=== PATIENT | male | born 1965 | race African-American/Black ===

== ENCOUNTER 2021-09-24 23:23 | Inpatient (IN) ==
[2021-09-25] MEDS ORDERED: ALBUTEROL 2.5 MG/3 ML NEB RESP TX PRN (01:22)
[2021-09-25] MEDS ORDERED: MORPHINE 2 MG/1 ML SYRINGE IV PRN (01:22)
[2021-09-25] MEDS ORDERED: ONDANSETRON 4 MG/2 ML VIAL IV PRN (01:22)
[2021-09-25 01:43] LABS: Basophils % 0.4 % (0.0-0.8); Eosinophils # 0.1 10*3/uL (0.0-0.87); Eosinophils % 0.6 % (0.00-10.9); Hematocrit 30.6 VOL% (42.0-52.0); Hemoglobin 9.4 GM/DL (14.0-18.0); Immature Granulocytes % 0.3 %; Immature Granulocytes Absolute 0.03 #; Lymphocytes # 2.6 10*3/uL (1.4-4.0); Lymphocytes % 26.3 % (21.2-54.2); Mean Corpuscular HGB Conc 30.7 GM/DL (32-36); Mean Corpuscular Volume 74.6 FL (87-102); Mean Platelet Volume 11.5 FL (9.6-12.0); Monocytes % 8.3 % (1.7-12.7); Neutrophils % 64.1 % (38.7-73.9); Platelet Count 323 T/CUMM (130-400); Red Cell Distribution Width 16.7 % (9.3-17.3); White Blood Count 9.8 T/CUMM (4-12)
[2021-09-25] MEDS ORDERED: DEXTROSE 50% 25 GM/50 ML VIAL IV PRN (01:50)
[2021-09-25] MEDS ORDERED: GLUCAGON 1 MG VIAL IM PRN (01:50)
[2021-09-25 01:57] LABS: ABG Base Excess -2.1 MMOL/L (-2.5-2.5); ABG HCO3 22.7 MMOL/L (20-26); ABG Oxygen Saturation 99.1 % (95-100); ABG PCO2 41.6 MM HG (35-48); ABG PH 7.357 (7.35-7.45); ABG TCO2 21.5 MMOL/L (23-27)
[2021-09-25 02:01] LABS: INR 1.2; PT Patient Result 12.9 SECS (10.5-12.0)
[2021-09-25 02:57] LABS: Albumin 2.9 G/DL (3.4-5.0); Bilirubin,Total 0.8 MG/DL (0.20-1.00); Calcium 8.3 MG/DL (8.5-10.1); Osmolality,Calculated 284.8 MOS/KG (273-304); Total Protein 7.7 G/DL (6.4-8.2)
[2021-09-25] MEDS ORDERED: ACETAMINOPHEN 325 MG TABLET PO PRN (03:02)
[2021-09-25] MEDS ORDERED: MAGNESIUM SULF RIDER 4 GM/100 ML PREMIX IV PRN (03:03)
[2021-09-25] MEDS ORDERED: MAGNESIUM SULF RIDER 2 GM/50 ML PREMIX IV PRN (03:03)
[2021-09-25 04:50] LABS: ABG Base Excess -0.6 MMOL/L (-2.5-2.5); ABG HCO3 23.2 MMOL/L (20-26); ABG Oxygen Saturation 97.7 % (95-100); ABG PCO2 34.7 MM HG (35-48); ABG PH 7.443 (7.35-7.45); ABG PO2 105.5 MM HG (80-95); ABG TCO2 24.3 MMOL/L (23-27)
[2021-09-25] MEDS: INSULIN REGULAR 100 UNIT/ML SUBCUT SCH ×3 (06:02→17:19)
[2021-09-25] MEDS ORDERED: INSULIN REGULAR 100 UNIT/ML SUBCUT SCH (07:30)
[2021-09-25] MEDS ORDERED: traZODone 50 MG TABLET PO PRN (07:53)
[2021-09-25] MEDS: ALBUTEROL/IPRATROPIUM 3 ML NEB RESP TX SCH ×3 (08:17→18:11)
[2021-09-25] MEDS ORDERED: INFLUENZA VIRUS VACCINE 0.5 ML SYRINGE IM ONE (09:00)
[2021-09-25] MEDS: FAMOTIDINE 20 MG TABLET NG SCH ×2 (09:51→20:50)
[2021-09-25] MEDS: ASPIRIN EC 81 MG TABLET PO SCH (09:53)
[2021-09-25] MEDS: APIXABAN 5 MG TABLET PO SCH ×2 (09:53→20:49)
[2021-09-25] MEDS: MULTIVITAMIN (CENTRUM) TABLET PO SCH (09:53)
[2021-09-25] MEDS: FUROSEMIDE 40 MG/4 ML VIAL IV SCH ×2 (09:54→16:34)
[2021-09-25 11:36] LABS: Calcium 8.8 MG/DL (8.5-10.1); Osmolality,Calculated 285.4 MOS/KG (273-304); Potassium 3.5 MMOL/L (3.5-5.1)
[2021-09-25] MEDS: PIPERACILLIN/TAZOBACTAM 3,375 MG in SODIUM CHLORIDE 0.9% 100 ML IV SCH ×2 (14:43→20:49)
[2021-09-25] MEDS: GENVOYA PO SCH (18:47)
[2021-09-25] MEDS: ATORVASTATIN 20 MG TABLET PO SCH (20:50)
[2021-09-25] MEDS: INSULIN GLARGINE 100 UNIT/ML SUBCUT SCH (20:50)
[2021-09-25] MEDS ORDERED: ENOXAPARIN 40 MG/0.4 ML SYRINGE SUBCUT SCH (21:00)
[2021-09-26] MEDS: INSULIN REGULAR 100 UNIT/ML SUBCUT SCH ×4 (00:14→17:23)
[2021-09-26] MEDS: ALBUTEROL/IPRATROPIUM 3 ML NEB RESP TX SCH ×4 (01:20→20:14)
[2021-09-26 04:26] LABS: ABG Base Excess 2.5 MMOL/L (-2.5-2.5); ABG HCO3 26.7 MMOL/L (20-26); ABG Oxygen Saturation 99.1 % (95-100); ABG PCO2 40.9 MM HG (35-48); ABG PH 7.428 (7.35-7.45); ABG TCO2 24.5 MMOL/L (23-27)
[2021-09-26 04:49] LABS: Albumin 2.5 G/DL (3.4-5.0); Bilirubin,Total 1.6 MG/DL (0.20-1.00); Calcium 8.7 MG/DL (8.5-10.1); Osmolality,Calculated 283.1 MOS/KG (273-304); Potassium 3.3 MMOL/L (3.5-5.1); Total Protein 7.4 G/DL (6.4-8.2)
[2021-09-26] MEDS: PIPERACILLIN/TAZOBACTAM 3,375 MG in SODIUM CHLORIDE 0.9% 100 ML IV SCH ×3 (05:18→22:16)
[2021-09-26] MEDS: POTASSIUM CHLORIDE 20 MEQ TABLET PO PRN (05:27)
[2021-09-26 07:09] LABS: Basophils % 0.7 % (0.0-0.8); Eosinophils # 0.4 10*3/uL (0.0-0.87); Hematocrit 31.7 VOL% (42.0-52.0); Hemoglobin 9.8 GM/DL (14.0-18.0); Immature Granulocytes % 0.2 %; Immature Granulocytes Absolute 0.01 #; Lymphocytes # 1.8 10*3/uL (1.4-4.0); Mean Corpuscular HGB Conc 30.9 GM/DL (32-36); Mean Corpuscular Volume 73.7 FL (87-102); Mean Platelet Volume 11.8 FL (9.6-12.0); Monocytes % 10.9 % (1.7-12.7); Neutrophils % 51.2 % (38.7-73.9); Platelet Count 378 T/CUMM (130-400); Red Cell Distribution Width 16.9 % (9.3-17.3); White Blood Count 5.9 T/CUMM (4-12)
[2021-09-26] MEDS: FUROSEMIDE 40 MG/4 ML VIAL IV SCH ×2 (07:37→16:42)
[2021-09-26] MEDS: APIXABAN 5 MG TABLET PO SCH ×2 (08:46→22:15)
[2021-09-26] MEDS: MULTIVITAMIN (CENTRUM) TABLET PO SCH (08:46)
[2021-09-26] MEDS: FAMOTIDINE 20 MG TABLET NG SCH ×2 (08:46→22:17)
[2021-09-26] MEDS: ASPIRIN EC 81 MG TABLET PO SCH (08:46)
[2021-09-26] MEDS ORDERED: hydrALAZINE 20 MG/1 ML VIAL IV PRN (09:31)
[2021-09-26] MEDS: GENVOYA PO SCH (10:12)
[2021-09-26] MEDS ORDERED: amLODIPine 5 MG TABLET PO SCH (11:00)
[2021-09-26] MEDS: carvediloL 12.5 MG TABLET PO SCH (18:07)
[2021-09-26] MEDS: ATORVASTATIN 20 MG TABLET PO SCH (22:15)
[2021-09-26] MEDS: cloNIDine 0.1 MG TABLET PO PRN (22:16)
[2021-09-26] MEDS: INSULIN GLARGINE 100 UNIT/ML SUBCUT SCH (22:17)
[2021-09-27] MEDS: ALBUTEROL/IPRATROPIUM 3 ML NEB RESP TX SCH ×4 (03:30→19:51)
[2021-09-27] MEDS: INSULIN REGULAR 100 UNIT/ML SUBCUT SCH ×4 (05:31→17:00)
[2021-09-27] MEDS: PIPERACILLIN/TAZOBACTAM 3,375 MG in SODIUM CHLORIDE 0.9% 100 ML IV SCH ×3 (05:36→21:45)
[2021-09-27 05:39] LABS: Basophils # 0.1 10*3/uL (0.0-0.2); Basophils % 0.6 % (0.0-0.8); Eosinophils # 0.4 10*3/uL (0.0-0.87); Eosinophils % 4.9 % (0.00-10.9); Hematocrit 36.4 VOL% (42.0-52.0); Hemoglobin 11.5 GM/DL (14.0-18.0); Immature Granulocytes % 0.4 %; Immature Granulocytes Absolute 0.03 #; Lymphocytes # 2.4 10*3/uL (1.4-4.0); Lymphocytes % 30.6 % (21.2-54.2); Mean Corpuscular HGB Conc 31.6 GM/DL (32-36); Mean Corpuscular Volume 72.9 FL (87-102); Mean Platelet Volume 11.3 FL (9.6-12.0); Neutrophils % 51.5 % (38.7-73.9); Platelet Count 467 T/CUMM (130-400); Red Blood Count 4.99 MC/CUMM (3.8-5.5); Red Cell Distribution Width 16.6 % (9.3-17.3); White Blood Count 7.7 T/CUMM (4-12)
[2021-09-27 06:02] LABS: Calcium 9.1 MG/DL (8.5-10.1); Osmolality,Calculated 279.5 MOS/KG (273-304); Potassium 3.3 MMOL/L (3.5-5.1)
[2021-09-27] MEDS: MULTIVITAMIN (CENTRUM) TABLET PO SCH (08:58)
[2021-09-27] MEDS: carvediloL 12.5 MG TABLET PO SCH ×2 (08:58→16:01)
[2021-09-27] MEDS: FAMOTIDINE 20 MG TABLET NG SCH ×2 (08:59→21:47)
[2021-09-27] MEDS: FUROSEMIDE 40 MG TABLET PO SCH (08:59)
[2021-09-27] MEDS: APIXABAN 5 MG TABLET PO SCH ×2 (09:00→21:47)
[2021-09-27] MEDS: ASPIRIN EC 81 MG TABLET PO SCH (09:01)
[2021-09-27] MEDS: amLODIPine 5 MG TABLET PO SCH (09:01)
[2021-09-27] MEDS: POTASSIUM CHLORIDE 20 MEQ TABLET PO PRN ×3 (09:01→16:01)
[2021-09-27] MEDS: GENVOYA PO SCH (09:02)
[2021-09-27] MEDS: FUROSEMIDE 40 MG/4 ML VIAL IV SCH (09:49)
[2021-09-27] MEDS: INSULIN GLARGINE 100 UNIT/ML SUBCUT SCH (21:47)
[2021-09-27] MEDS: ATORVASTATIN 20 MG TABLET PO SCH (21:47)
[2021-09-28] MEDS: ALBUTEROL/IPRATROPIUM 3 ML NEB RESP TX SCH ×4 (02:10→20:05)
[2021-09-28] MEDS: INSULIN REGULAR 100 UNIT/ML SUBCUT SCH ×4 (03:40→17:55)
[2021-09-28 04:41] LABS: Basophils # 0.1 10*3/uL (0.0-0.2); Basophils % 0.7 % (0.0-0.8); Eosinophils # 0.4 10*3/uL (0.0-0.87); Eosinophils % 6.2 % (0.00-10.9); Hematocrit 37.9 VOL% (42.0-52.0); Hemoglobin 11.8 GM/DL (14.0-18.0); Immature Granulocytes % 0.3 %; Immature Granulocytes Absolute 0.02 #; Lymphocytes # 2.6 10*3/uL (1.4-4.0); Mean Corpuscular HGB Conc 31.1 GM/DL (32-36); Mean Corpuscular Volume 74.8 FL (87-102); Mean Platelet Volume 11.1 FL (9.6-12.0); Monocytes % 14.5 % (1.7-12.7); Neutrophils % 41.3 % (38.7-73.9); Platelet Count 468 T/CUMM (130-400); Red Blood Count 5.07 MC/CUMM (3.8-5.5); Red Cell Distribution Width 16.6 % (9.3-17.3); White Blood Count 6.9 T/CUMM (4-12)
[2021-09-28 04:58] LABS: Calcium 9.2 MG/DL (8.5-10.1); Osmolality,Calculated 278.7 MOS/KG (273-304); Potassium 3.7 MMOL/L (3.5-5.1)
[2021-09-28] MEDS: PIPERACILLIN/TAZOBACTAM 3,375 MG in SODIUM CHLORIDE 0.9% 100 ML IV SCH ×3 (05:45→20:35)
[2021-09-28] MEDS: ASPIRIN EC 81 MG TABLET PO SCH (08:30)
[2021-09-28] MEDS: MULTIVITAMIN (CENTRUM) TABLET PO SCH (08:30)
[2021-09-28] MEDS: APIXABAN 5 MG TABLET PO SCH ×2 (08:30→20:37)
[2021-09-28] MEDS: FUROSEMIDE 40 MG TABLET PO SCH (08:30)
[2021-09-28] MEDS: lisinopriL 10 MG TABLET PO SCH (08:30)
[2021-09-28] MEDS: POTASSIUM CHLORIDE 20 MEQ TABLET PO PRN (08:30)
[2021-09-28] MEDS: FAMOTIDINE 20 MG TABLET NG SCH ×2 (08:30→20:37)
[2021-09-28] MEDS: carvediloL 12.5 MG TABLET PO SCH ×2 (08:30→17:12)
[2021-09-28] MEDS: amLODIPine 5 MG TABLET PO SCH (08:30)
[2021-09-28] MEDS: GENVOYA PO SCH ×2 (08:31→10:50)
[2021-09-28] MEDS: cloNIDine 0.1 MG TABLET PO PRN (12:04)
[2021-09-28] MEDS: INSULIN GLARGINE 100 UNIT/ML SUBCUT SCH (20:36)
[2021-09-28] MEDS: ATORVASTATIN 20 MG TABLET PO SCH (20:37)
[2021-09-29] MEDS: ALBUTEROL/IPRATROPIUM 3 ML NEB RESP TX SCH ×4 (01:06→22:10)
[2021-09-29] MEDS: INSULIN REGULAR 100 UNIT/ML SUBCUT SCH ×4 (01:57→19:22)
[2021-09-29] MEDS: PIPERACILLIN/TAZOBACTAM 3,375 MG in SODIUM CHLORIDE 0.9% 100 ML IV SCH ×3 (05:18→21:05)
[2021-09-29 06:01] LABS: Calcium 9.1 MG/DL (8.5-10.1); Osmolality,Calculated 284.5 MOS/KG (273-304); Potassium 3.6 MMOL/L (3.5-5.1)
[2021-09-29 06:06] LABS: Basophils # 0.1 10*3/uL (0.0-0.2); Basophils % 0.6 % (0.0-0.8); Eosinophils # 0.4 10*3/uL (0.0-0.87); Eosinophils % 5.2 % (0.00-10.9); Hematocrit 37.2 VOL% (42.0-52.0); Hemoglobin 11.1 GM/DL (14.0-18.0); Immature Granulocytes % 0.5 %; Immature Granulocytes Absolute 0.04 #; Lymphocytes % 37.9 % (21.2-54.2); Mean Corpuscular HGB Conc 29.8 GM/DL (32-36); Mean Corpuscular Volume 75.8 FL (87-102); Mean Platelet Volume 11.2 FL (9.6-12.0); Monocytes % 12.4 % (1.7-12.7); Neutrophils % 43.4 % (38.7-73.9); Platelet Count 505 T/CUMM (130-400); Red Blood Count 4.91 MC/CUMM (3.8-5.5); Red Cell Distribution Width 16.7 % (9.3-17.3); White Blood Count 7.9 T/CUMM (4-12)
[2021-09-29] MEDS: ASPIRIN EC 81 MG TABLET PO SCH (13:05)
[2021-09-29] MEDS: FUROSEMIDE 40 MG TABLET PO SCH (13:05)
[2021-09-29] MEDS: MULTIVITAMIN (CENTRUM) TABLET PO SCH (13:05)
[2021-09-29] MEDS: amLODIPine 5 MG TABLET PO SCH (13:05)
[2021-09-29] MEDS: carvediloL 12.5 MG TABLET PO SCH ×2 (13:05→19:21)
[2021-09-29] MEDS: GENVOYA PO SCH (13:05)
[2021-09-29] MEDS: APIXABAN 5 MG TABLET PO SCH ×2 (13:06→21:05)
[2021-09-29] MEDS: lisinopriL 10 MG TABLET PO SCH (13:06)
[2021-09-29] MEDS: FAMOTIDINE 20 MG TABLET NG SCH ×2 (13:06→21:04)
[2021-09-29] MEDS: INSULIN GLARGINE 100 UNIT/ML SUBCUT SCH (21:04)
[2021-09-29] MEDS: ATORVASTATIN 20 MG TABLET PO SCH (21:05)
[2021-09-30] MEDS: ALBUTEROL/IPRATROPIUM 3 ML NEB RESP TX SCH ×2 (01:30→07:10)
[2021-09-30] MEDS: INSULIN REGULAR 100 UNIT/ML SUBCUT SCH ×3 (01:48→13:21)
[2021-09-30] MEDS: PIPERACILLIN/TAZOBACTAM 3,375 MG in SODIUM CHLORIDE 0.9% 100 ML IV SCH ×2 (05:20→13:21)
[2021-09-30 06:55] LABS: Calcium 9.5 MG/DL (8.5-10.1); Osmolality,Calculated 277.8 MOS/KG (273-304); Potassium 3.8 MMOL/L (3.5-5.1)
[2021-09-30] MEDS: ASPIRIN EC 81 MG TABLET PO SCH (09:30)
[2021-09-30] MEDS: carvediloL 12.5 MG TABLET PO SCH (09:30)
[2021-09-30] MEDS: MULTIVITAMIN (CENTRUM) TABLET PO SCH (09:30)
[2021-09-30] MEDS: FAMOTIDINE 20 MG TABLET NG SCH (09:31)
[2021-09-30] MEDS: GENVOYA PO SCH (09:31)
[2021-09-30] MEDS: FUROSEMIDE 40 MG TABLET PO SCH (09:31)
[2021-09-30] MEDS: amLODIPine 5 MG TABLET PO SCH (09:31)
[2021-09-30] MEDS: APIXABAN 5 MG TABLET PO SCH (09:31)
[2021-09-30] MEDS: lisinopriL 10 MG TABLET PO SCH (09:32)
[2021-09-30] MEDS ORDERED: INFLUENZA VIRUS VACCINE 0.5 ML SYRINGE IM ONE (11:00)
[2021-09-30 12:03] VITALS: BP 154/71
== END 2021-09-30 12:25 | disposition swing bed (61) | DRG 291 ==
LOC: N.ICU 09-25 00:56 → SUATTDRO 09-25 00:56 → N.TELES 09-28 15:51
PROVIDERS: ADMIT Internal Medicine; ATTEND Internal Medicine